=== PATIENT | male | born 1970 | race Caucasian/White ===

== ENCOUNTER 2017-01-30 17:48 | Emergency (ER) | payer SELFPAY ==
[2017-01-30 18:06] LABS: BASOPHILS % 0.7 (0.0-1.5); EOSINOPHILS % 4.5 % (0.0-6.8); MEAN CORPUSCULAR HEMOGLOBIN 31.7 pg (28.0-34.0); MEAN CORPUSCULAR VOLUME 94.5 fl (80.0-100.0); MONOCYTES % 4.1 % (0.0-11.0); NEUTROPHILS # 5.5 # k/uL (1.4-7.7)
[2017-01-30 18:22] LABS: eGFR (African) > 60; eGFR (Non-African) > 60
[2017-01-30] MEDS ORDERED: 0.9 % SODIUM CHLORIDE 1,000 ML IV ONE ×2 (18:30→18:31)
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
[2017-01-30 20:01] VITALS: BP 129/77
[2017-01-31 05:43] LABS: AMPHETAMINE NEGATIVE ng/mL (<1000); BARBITURATES NEGATIVE ng/mL (<300); CANNABINOIDS NON NEGATIVE ng/mL (<50); COCAINE NEGATIVE ng/mL (<150); METHAMPHETAMINE NEGATIVE ng/mL (<1000); METHYLENEDIOXYMETHAMPHETAMINE NEGATIVE ng/mL (<500)
[2017-01-31 06:06] LABS: APPEARANCE,URINE CLEAR (CLEAR); COLOR,URINE AMBER (YELLOW); OCCULT BLOOD,URINE NEGATIVE (NEGATIVE); PH URINE 5.5 (5.0 - 8.0); UROBILINOGEN URINE 0.2 Eu (0.2-1.0)
== END 2017-01-30 19:55 | disposition home or self-care (01) ==
LOC: ED 17:48
DX: R55 Syncope and collapse (principal)
CPT/HCPCS: 36415; 80053; 82550; 82553; 84484; 85025; J7030; 80377; 81002; 96360; 96361; 99283; G0481